=== PATIENT | male | born 1990 | race African-American/Black ===

== ENCOUNTER 2024-03-06 19:36 | Emergency (ER) | payer BC ==
[~2024-03-06] VITALS: Ht 180.3 cm; Wt 83.2 kg
[2024-03-06 19:46] VITALS: TEMP 97.8
[2024-03-06] MEDS: haloperidol lactate 5mg/ml inj IM ONE (21:29)
[2024-03-06] MEDS: normal saline 1000ML IV soln IVB ONE (21:33)
[2024-03-06 22:23] VITALS: BP 130/78
[2024-03-06] MEDS ORDERED: METO10TA3 PO (22:41)
[2024-03-07 00:03] VITALS: PULSE 78; RESP 16; O2SAT 98
== END 2024-03-07 00:05 | disposition home or self-care (01) ==
LOC: ER 19:37
DX: R11.10 Vomiting, unspecified (principal); Z88.0 Allergy status to penicillin
CPT/HCPCS: 96360; 96372; 99283; J1630; J7030